=== PATIENT | male | born 1985 | race Caucasian/White ===

== ENCOUNTER 2017-03-30 14:26 | Emergency (ER) | payer OTHER ==
[2017-03-30 14:30] VITALS: BP 131/80; PULSE 79; RESP 18; TEMP 98.4
[2017-03-30] MEDS ORDERED: IBUPROFEN 800 MG TAB PO STA (14:52)
--- NOTE | 2017-03-30 14:54 | ED ---
Back Pain HPI - General Chief Complaint: Back Pain/Injury Stated Complaint: back pain Time Seen by Provider: 03/30/17 14:33 Source: patient, RN notes reviewed Limitations: no limitations - History of Present Illness Initial Comments: Patient is a 31-year-old male presents to the emergency room for evaluation of left-sided low back pain. Patient states he was lifting up a heavy object about a month ago and felt a pull in his left lower back. Patient states been having constant pain in his lower back ever since the incident. Patient denies taking any Tylenol or Motrin or any types of pain relievers for symptoms. Patient denies ever following up with his primary care provider. Patient denies saddle anesthesia. Patient denies urinary or fecal incontinence. Patient denies any numbness or tingling going down his legs. Patient denies any fall or direct trauma to his back. - Related Data Previous Rx's Medication Instructions Recorded Ibuprofen [Motrin] 800 mg PO Q6HR PRN #20 tab 03/30/17 Orphenadrine [Norflex] 100 mg PO Q12H PRN #12 tablet.er 03/30/17 Allergies Allergy/AdvReac Type Severity Reaction Status Date / Time No Known Allergies Allergy Verified 03/30/17 14:30 Review of Systems ROS Statement: Those systems with pertinent positive or pertinent negative responses have been documented in the HPI. ROS Other: All systems not noted in ROS Statement are negative. Past Medical History Additional Past Medical History / Comment(s): back pain History of Any Multi-Drug Resistant Organisms: None Reported Past Surgical History: No Surgical Hx Reported Past Psychological History: No Psychological Hx Reported Smoking Status: Current every day smoker Past Alcohol Use History: None Reported Past Drug Use History: None Reported General Exam - General Exam Comments Initial Comments: Sitting in exam room, no acute distress. Limitations: no limitations General appearance: alert, in no apparent distress Head exam: Present: atraumatic, normocephalic, normal inspection Eye exam: Present: normal appearance ENT exam: Present: normal exam Neck exam: Present: normal inspection Respiratory exam: Absent: respiratory distress Extremities exam: Present: normal inspection Back exam: Present: normal inspection, full ROM, paraspinal tenderness (Left- sided lumbosacral paraspinal tenderness on palpation) Neurological exam: Present: alert, oriented X3, CN II-XII intact Psychiatric exam: Present: normal affect, normal mood Skin exam: Present: warm, dry, intact, normal color. Absent: rash Course Vital Signs 03/30/17 14:28 Temperature 98.4 F Pulse Rate 79 Respiratory 18 Rate Blood Pressure 131/80 O2 Sat by Pulse 97 Oximetry Medical Decision Making - Medical Decision Making Patient is a 31-year-old male presents emergency room for evaluation of low back pain 1 month. Lumbar spine x-ray: Very mild anterior wedge deformity of L1 of indetermine age. Patient has no tenderness on palpation. Patient states he might have fallen a few months ago but cannot recall any specific injury. Patient has no neuro deficits. Advised patient to follow-up with youth care specialist for further evaluation. Patient states he understands everything that was discussed with him. Return parameters discussed. Case discussed with Dr. Abdi. - Radiology Data Radiology results: report reviewed, image reviewed Disposition Clinical Impression: Low back pain Disposition: HOME SELF-CARE Condition: Good Instructions: Acute Low Back Pain (ED) Additional Instructions: Take Tylenol or Motrin as needed for pain. Warm moist heat. Please follow-up with youth care specialist for reevaluation in 24-48 hours. If any new symptom arises or symptoms worsen, return to ER as soon as possible. Prescriptions: Ibuprofen [Motrin] 800 mg PO Q6HR PRN #20 tab PRN Reason: Pain Orphenadrine [Norflex] 100 mg PO Q12H PRN #12 tablet.er PRN Reason: Pain Referrals: Mendoza Burgos MD [STAFF PHYSICIAN] - 1-2 days Time of Disposition: 15:16
--- NOTE | 2017-03-30 15:08 | XR ---
EXAM TYPE: LUMBAR SPINE X RAY SERIES COMPARISON: NONE HISTORY: Lower back pain TECHNIQUE: 4 views are submitted. FINDINGS: Alignment is anatomic. The pedicles are intact. The transverse processes are intact. There is no s pondylolysis or spondylolisthesis. Mild anterior wedge deformity of L1 of indeterminate age. Spina b ifida occulta lumbosacral junction. IMPRESSION: 1. Very mild anterior wedge deformity L1 of indeterminate age. Correlate clinically..
== END 2017-03-30 15:26 | disposition home or self-care (01) ==
LOC: EC 14:26
DX: M54.5 Low back pain (principal); F17.200 Nicotine dependence, unspecified, uncomplicated
CPT/HCPCS: 72110; 99283

== ENCOUNTER 2022-05-06 16:00 | Emergency (ER) | payer OTHER ==
[2022-05-06 16:49] VITALS: RESP 20; TEMP 98.6
[2022-05-06] MEDS ORDERED: ACETAMINOPHEN TAB 500 MG TAB PO STA (18:10)
--- NOTE | 2022-05-06 18:44 | ED ---
General Adult HPI - General Source: police, RN notes reviewed, old records reviewed Mode of arrival: ambulatory Limitations: no limitations <Jacoby Morfin - Last Filed: 05/06/22 18:41> <Roby Garcia - Last Filed: 05/07/22 18:31> - General Chief complaint: Psychiatric Symptoms Stated complaint: Law Enforcement Petition, Mental Health Time Seen by Provider: 05/06/22 17:57 - History of Present Illness Initial comments: Patient is a 36-year-old male with past medical history remarkable for methamphetamine use presents emergency department after being dictation by police. Patient has called police the last 2 nights. Petition states "jerardo is paranoid and delusional. Plans believe that numerous people were sitting in his vehicle. Office is also spoke with Jerardo that previously and at that time he believed 100s of officers were following him. He also mentioned his belongings were in a random citizens heart as they were riding a bicycle by him." Patient does admit to using methamphetamine 2 days ago. Since that time he states he has been hearing voices. Nondiscernible statements made by the voices. Also appears somewhat delusional. No history of mental illness per patient. Denies any other drug use. Denies alcohol use. Denies suicidal or homicidal ideations, attempts, plans. Presents for psychiatric evaluation at this time. Currently has no other acute complaints. He has chronic back discomfort and is requesting and Tylenol at this time.Patient presents in custody of police. (Jacoby Morfin) - Related Data Previous Rx's Medication Instructions Recorded Ibuprofen [Motrin] 800 mg PO Q6HR PRN #20 tab 03/30/17 Orphenadrine [Norflex] 100 mg PO Q12H PRN #12 tablet.er 03/30/17 Allergies Allergy/AdvReac Type Severity Reaction Status Date / Time No Known Allergies Allergy Verified 05/06/22 16:48 Review of Systems ROS Other: All systems not noted in ROS Statement are negative. <Jacoby Morfin - Last Filed: 05/06/22 18:41> ROS Other: All systems not noted in ROS Statement are negative. <Roby Garcia - Last Filed: 05/07/22 18:31> ROS Statement: Those systems with pertinent positive or pertinent negative responses have been documented in the HPI. Review of Systems: CONST: Denies fever EYES: Denies blurry vision ENT: Denies nasal congestion C/V: Denies Chest pain RESP: Denies shortness of breath GI: Denies abdominal pain : Denies dysuria SKIN: Denies rash. MSK: Denies joint pain. NEURO: Denies headache PSYCH: Denies suicidal and homicidal ideations/plans/attempts. Denies visual hallucinations. He endorses hearing voices. (Jacoby Morfin) Past Medical History Additional Past Medical History / Comment(s): back pain History of Any Multi-Drug Resistant Organisms: None Reported Past Surgical History: No Surgical Hx Reported Past Psychological History: No Psychological Hx Reported Smoking Status: Current every day smoker Past Alcohol Use History: None Reported Past Drug Use History: None Reported <Jacoby Morfin - Last Filed: 05/06/22 18:41> General Exam Limitations: no limitations <Jacoby Morfin - Last Filed: 05/06/22 18:41> - General Exam Comments Initial Comments: General: Appears in no acute distress. HEAD: Normal with no signs of head trauma. EYES: PERRLA, EOMI, conjunctiva normal, no discharge. Pupils are 3 mm and equal bilaterally. ENT: Hearing grossly intact, normal oropharynx. RESPIRATORY: Clear breath sounds bilaterally. No wheezes, rales, or rhonchi. C/V: Regular rate and rhythm. S1 and S2 auscultated, no edema, peripheral pulses 2+ and intact throughout ABD: Abd is soft, nontender, nondistended EXT: Normal range of motion, no obvious deformity SKIN: No rashes or lesions observed on exposed skin. NEURO: Alert and oriented 4. Cooperative. No focal deficits. (Jacoby Morfin) Course Vital Signs 05/06/22 05/06/22 05/07/22 16:44 20:06 05:25 Temperature 98.6 F Pulse Rate 88 80 70 Respiratory 20 Rate Blood Pressure 148/102 131/80 116/75 O2 Sat by Pulse 97 97 Oximetry Medical Decision Making <Jacoby Morfin - Last Filed: 05/06/22 18:41> <Roby Garcia - Last Filed: 05/07/22 18:31> - Medical Decision Making Based on the patient's presentation and physical exam, do believe that he requires psychiatric evaluation. I do not believe that further laboratory studies are required at this time. Patient was placed in green scrubs. BAT is 0.00. UDS is pending. Patient is otherwise cleared for evaluation by psychiatry. Patient is medically cleared. Disposition is pending psychiatric evaluation. EPS was notified. (Jacoby Morfin) 36 male was seen and evaluated by psychiatry here in the ER. Patient will be discharged home as he is currently clear intoxication (Roby Garcia) - Lab Data Lab Results 05/06/22 Range/Units 18:29 Urine Opiates Screen Not Detected (NotDetected) Ur Oxycodone Screen Not Detected (NotDetected) Urine Methadone Screen Not Detected (NotDetected) Ur Propoxyphene Screen Not Detected (NotDetected) Ur Barbiturates Screen Not Detected (NotDetected) U Tricyclic Antidepress Not Detected (NotDetected) Ur Phencyclidine Scrn Not Detected (NotDetected) Ur Amphetamines Screen Detected H (NotDetected) U Methamphetamines Scrn Detected H (NotDetected) U Benzodiazepines Scrn Not Detected (NotDetected) Urine Cocaine Screen Detected H (NotDetected) U Marijuana (THC) Screen Not Detected (NotDetected) Disposition <Jacoby Morfin - Last Filed: 05/06/22 18:41> Is patient prescribed a controlled substance at d/c from ED?: No <Roby Garcia - Last Filed: 05/07/22 18:31> Clinical Impression: Encounter for psychiatric assessment, Delusions, Methamphetamine use, Auditory hallucination Disposition: HOME SELF-CARE Condition: Good Instructions (If sedation given, give patient instructions): Brief Psychotic Disorder (ED) Referrals: Tyron Meek MD [Primary Care Provider] - 1-2 days
[2022-05-06 19:30] LABS: Cocaine Screen,Urine Detected (NotDetected); Phencyclidine Screen,Urine Not Detected (NotDetected); Urn Cannabinoid Scrn Not Detected (NotDetected)
[2022-05-06 19:31] LABS: Amphetamine Screen,Urine Detected (NotDetected); Barbiturate Screen,Urine Not Detected (NotDetected); Benzodiazepines Screen,Urine Not Detected (NotDetected); Methadone Screen, Urine Not Detected (NotDetected); Opiate Screen,Urine Not Detected (NotDetected); Oxycodone Screen, Urine Not Detected (NotDetected); Tricyclic Antidepressant,Urine Not Detected (NotDetected)
[2022-05-07 05:30] VITALS: BP 116/75; PULSE 70
== END 2022-05-07 06:31 | disposition home or self-care (01) ==
LOC: EC 16:00
DX: Z04.6 Encounter for general psychiatric examination, requested by authority (principal); F15.90 Other stimulant use, unspecified, uncomplicated; R44.0 Auditory hallucinations
CPT/HCPCS: 80306; 82075

== ENCOUNTER 2024-04-05 19:28 | Emergency (ER) | payer OTHER ==
[2024-04-05 19:48] VITALS: BP 151/88; PULSE 75; RESP 18; TEMP 98.2
--- NOTE | 2024-04-05 22:39 | ED ---
Psych HPI - General Chief Complaint: Psychiatric Symptoms Stated Complaint: Mental Health Time Seen by Provider: 04/05/24 21:55 Source: patient Mode of arrival: ambulatory - History of Present Illness Initial Comments: 38-year-old male presenting for psychiatric evaluation. The patient states that he has been hearing voices. When asked what the voices are saying he says "a little bit of everything". He states that the voices are not telling him to harm himself or other people. He denies any suicidal or homicidal ideation. He denies any visual hallucinations. States "I feel like someone bugged me". No physical complaints today. The patient is currently homeless. - Related Data Home Medications Medication Instructions Recorded Confirmed Albuterol Sulfate [Albuterol 1 - 2 puff INHALATION RT-QID PRN 01/02/23 01/02/23 Sulfate Hfa] Buprenorphine HCl/Naloxone HCl 1 film SL DAILY 01/02/23 01/02/23 [Suboxone 8 mg-2 mg Sl Film] Ergocalciferol [Vitamin D2 (1250 1,250 mcg PO QMONTHLY 01/02/23 01/02/23 Mcg = [id number] Iu)] LORazepam [Ativan] 0.5 mg PO DAILY PRN 01/02/23 01/02/23 Venlafaxine HCl ER [Effexor Xr] 75 mg PO DAILY 01/02/23 01/02/23 Allergies Allergy/AdvReac Type Severity Reaction Status Date / Time No Known Allergies Allergy Verified 04/05/24 19:33 Review of Systems ROS Statement: Those systems with pertinent positive or pertinent negative responses have been documented in the HPI. ROS Other: All systems not noted in ROS Statement are negative. Past Medical History Additional Past Medical History / Comment(s): back pain History of Any Multi-Drug Resistant Organisms: None Reported Past Surgical History: No Surgical Hx Reported Past Psychological History: No Psychological Hx Reported Smoking Status: Current every day smoker Past Alcohol Use History: None Reported Past Drug Use History: None Reported General Exam Limitations: no limitations General appearance: alert, in no apparent distress Head exam: Present: atraumatic, normocephalic Eye exam: Present: normal appearance, EOMI Neck exam: Present: normal inspection Respiratory exam: Absent: respiratory distress Cardiovascular Exam: Present: regular rate Neurological exam: Present: alert, oriented X3 Psychiatric exam: Absent: homicidal ideation, suicidal ideation Skin exam: Present: normal color Course Vital Signs 04/05/24 19:31 Temperature 98.2 F Pulse Rate 75 Respiratory 18 Rate Blood Pressure 151/88 O2 Sat by Pulse 99 Oximetry Medical Decision Making - Medical Decision Making Was pt. sent in by a medical professional or institution (, [place], SENIOR MORTGAGE UNDERWRITER, urgent care, hospital, or retirement...) When possible be specific @ -No Did you speak to anyone other than the patient for history (EMS, parent, family, police, friend...)? What history was obtained from this source @ -No Did you review nursing and triage notes (agree or disagree)? Why? @ -I reviewed and agree with nursing and triage notes Were old charts reviewed (outside hosp., previous admission, EMS record, old EKG, old radiological studies, urgent care reports/EKG's, retirement records)? Report findings @ -No old charts were reviewed Differential Diagnosis (chest pain, altered mental status, abdominal pain women, abdominal pain men, vaginal bleeding, weakness, fever, dyspnea, syncope, headache, dizziness, GI bleed, back pain, seizure, CVA, palpatations, mental health, musculoskeletal)? @ -Differential Mental Health Depression, anxiety, bipolar, psychosis, schizophrenia, borderline personality, situational depression, adjustment disorder, behavioral disorder, brain tumor, malingering, substance abuse, encephalopathy, medication reaction, dementia, hypothyroidism, degenerative neurologic disorder, lupus.... This is not meant to be all-inclusive list EKG interpreted by me (3pts min.). @ -As above X-rays interpreted by me (1pt min.). @ -None done CT interpreted by me (1pt min.). @ -None done U/S interpreted by me (1pt. min.). @ -None done What testing was considered but not performed or refused? (CT, X-rays, U/S, labs)? Why? @ -Urine drug screen was ordered, patient left AMA What meds were considered but not given or refused? Why? @ -None Did you discuss the management of the patient with other professionals (professionals i.e. [employer] [facility], SENIOR MORTGAGE UNDERWRITER, lab, RT, psych nurse, psychologist social, maternal fetal physician, teacher, promotion officer, mattress spring encaser)? Give summary @ -No Was smoking cessation discussed for >3mins.? @ -No Was critical care preformed (if so, how long)? @ -No Were there social determinants of health that impacted care today? How? (Homelessness, low income, unemployed, alcoholism, drug addiction, transportation, low edu. Level, literacy, decrease access to med. care, fci, rehab)? @ -No Was there de-escalation of care discussed even if they declined (Discuss DNR or withdrawal of care, Hospice)? DNR status @ -No What co-morbidities impacted this encounter? (DM, HTN, Smoking, COPD, CAD, Cancer, CVA, ARF, Chemo, Hep., AIDS, mental health diagnosis, sleep apnea, morbid obesity)? @ -None Was patient admitted / discharged? Hospital course, mention meds given and route, prescriptions, significant lab abnormalities, going to OR and other pertinent info. @ -38-year-old male requesting a psychiatric evaluation. States that he was hearing voices. No suicidal or homicidal ideation. Patient later left his room without letting staff know. He was found in the waiting room and told them that he had called a ride and did not wish to receive an evaluation. The patient is not a danger to himself or others, he signed out AGAINST MEDICAL ADVICE. Undiagnosed new problem with uncertain prognosis? @ -No Drug Therapy requiring intensive monitoring for toxicity (Heparin, Nitro, Insulin, Cardizem)? @ -No Were any procedures done? @ -No Diagnosis/symptom? @ -Adjustment reaction of abdominal life Acute, or Chronic, or Acute on Chronic? @ -Acute Uncomplicated (without systemic symptoms) or Complicated (systemic symptoms)? @ -Uomplicated Side effects of treatment? @ -No Exacerbation, Progression, or Severe Exacerbation? @ -No Poses a threat to life or bodily function? How? (Chest pain, [place], [place], pneumonia, PE, COPD, DKA, ARF, appy, cholecystitis, CVA, Diverticulitis, Homicidal, Suicidal, threat to staff... and all critical care pts) @ -Low likelihood Disposition Clinical Impression: Adjustment reaction of adult life Disposition: LEFT AGAINST MEDICAL ADVICE Condition: Stable Referrals: None,Stated [Primary Care Provider] - 1-2 days Time of Disposition: 23:31
== END 2024-04-05 23:30 | disposition left against medical advice (07) ==
LOC: EC 19:28
DX: F43.20 Adjustment disorder, unspecified (principal); F17.200 Nicotine dependence, unspecified, uncomplicated; Z59.00 Homelessness unspecified; Z53.29 Procedure and treatment not carried out because of patient's decision for other reasons
CPT/HCPCS: 82075; 99284

== ENCOUNTER 2024-04-14 02:45 | Emergency (ER) | payer OTHER ==
--- NOTE | 2024-04-14 03:03 | ED ---
Psych HPI - General Stated Complaint: Mental Health Time Seen by Provider: 04/14/24 03:02 - History of Present Illness Initial Comments: Vadim is a 38-year-old gentleman well-known to this ER for visits related to methamphetamine abuse. Today the patient was found running down the street screaming the place approached him and he started yelling that he wanted to so they brought him to the ER for psychiatric evaluation. Patient does admit to regular use of crystal meth including earlier in the night. - Related Data Home Medications Medication Instructions Recorded Confirmed Albuterol Sulfate [Albuterol 1 - 2 puff INHALATION RT-QID PRN 01/02/23 01/02/23 Sulfate Hfa] Buprenorphine HCl/Naloxone HCl 1 film SL DAILY 01/02/23 01/02/23 [Suboxone 8 mg-2 mg Sl Film] Ergocalciferol [Vitamin D2 (1250 1,250 mcg PO QMONTHLY 01/02/23 01/02/23 Mcg = 57132 Iu)] LORazepam [Ativan] 0.5 mg PO DAILY PRN 01/02/23 01/02/23 Venlafaxine HCl ER [Effexor Xr] 75 mg PO DAILY 01/02/23 01/02/23 Allergies Allergy/AdvReac Type Severity Reaction Status Date / Time No Known Allergies Allergy Verified 04/05/24 19:33 Review of Systems ROS Statement: Those systems with pertinent positive or pertinent negative responses have been documented in the HPI. ROS Other: All systems not noted in ROS Statement are negative. Past Medical History Additional Past Medical History / Comment(s): back pain History of Any Multi-Drug Resistant Organisms: None Reported Past Surgical History: No Surgical Hx Reported Past Psychological History: No Psychological Hx Reported Smoking Status: Current every day smoker Past Alcohol Use History: None Reported Past Drug Use History: None Reported General Exam - General Exam Comments Initial Comments: Physical Exam GENERAL: Patient is well-developed and well-nourished. Patient is nontoxic and well-hydrated and is in no distress. HENT: Normocephalic, Atraumatic. EYES: PERRL, EOMI PULMONARY: Unlabored respirations. CARDIOVASCULAR: RRR Warm and well perfused extremities ABDOMEN: Non-distended SKIN: No rashes or bruising : Deferred NEUROLOGIC: Alert and oriented Normal speech Normal gait MUSCULOSKELETAL: Moving all extremities with no apparent injury PSYCHIATRIC: Denies suicidal or homicidal ideation Course Vital Signs 04/14/24 02:57 Temperature 97.9 F Pulse Rate 88 Respiratory 16 Rate Blood Pressure 131/51 O2 Sat by Pulse 96 Oximetry Medical Decision Making - Medical Decision Making Was pt. sent in by a medical professional or institution (, [place], DRAW PRESS OPERATOR, urgent care, hospital, or usp...) When possible be specific @ -No Did you speak to anyone other than the patient for history (EMS, parent, family, police, friend...)? What history was obtained from this source @ -Law enforcement, EMS Did you review nursing and triage notes (agree or disagree)? Why? @ -I reviewed and agree with nursing and triage notes Were old charts reviewed (outside hosp., previous admission, EMS record, old EKG, old radiological studies, urgent care reports/EKG's, usp records)? Report findings @ -Previous ER visits and labs were reviewed Differential Diagnosis (chest pain, altered mental status, abdominal pain women, abdominal pain men, vaginal bleeding, weakness, fever, dyspnea, syncope, headache, dizziness, GI bleed, back pain, seizure, CVA, palpatations, mental health)? @ -Differential Mental Health Depression, anxiety, bipolar, psychosis, schizophrenia, borderline personality, situational depression, adjustment disorder, behavioral disorder, brain tumor, malingering, substance abuse, encephalopathy, medication reaction, dementia, hypothyroidism, degenerative neurologic disorder, lupus.... This is not meant to be all-inclusive list EKG interpreted by me (3pts min.). @ -As above X-rays interpreted by me (1pt min.). @ -None done CT interpreted by me (1pt min.). @ -None done U/S interpreted by me (1pt. min.). @ -None done What testing was considered but not performed or refused? (CT, X-rays, U/S, labs)? Why? @ -None What meds were considered but not given or refused? Why? @ -None Did you discuss the management of the patient with other professionals (professionals i.e. [place] [facility], DRAW PRESS OPERATOR, lab, RT, psych nurse, high school social studies tutor, educational manager, teacher, postal delivery officer, nurse case management)? Give summary @ -No Was smoking cessation discussed for >3mins.? @ -No Was critical care preformed (if so, how long)? @ -No Were there social determinants of health that impacted care today? How? (Homelessness, low income, unemployed, alcoholism, drug addiction, t ransportation, low edu. Level, literacy, decrease access to med. care, longterm, rehab)? @ -Drug addiction Was there de-escalation of care discussed even if they declined (Discuss DNR or withdrawal of care, Hospice)? DNR status @ -No What co-morbidities impacted this encounter? (DM, HTN, Smoking, COPD, CAD, Cancer, CVA, ARF, Chemo, Hep., AIDS, mental health diagnosis, sleep apnea, morbid obesity)? @ -None Was patient admitted / discharged? Hospital course, mention meds given and route, prescriptions, significant lab abnormalities, going to OR and other pertinent info. @ -Discharged The patient was seen and evaluated history was obtained from patient and law enforcement. Patient admitted to crystal methamphetamine use he denied any suicidal or homicidal ideation. Patient is awake alert oriented and appropriate. Patient was evaluated by the EPS nurse who agrees patient is awake alert oriented and able to safety plan. Patient will be discharged home Undiagnosed new problem with uncertain prognosis? @ -No Drug Therapy requiring intensive monitoring for toxicity (Heparin, Nitro, Ins ulin, Cardizem)? @ -No Were any procedures done? @ -No Diagnosis/symptom? @ -Methamphetamine abuse Acute, or Chronic, or Acute on Chronic? @ -Chronic Uncomplicated (without systemic symptoms) or Complicated (systemic symptoms)? @ -Complicated Side effects of treatment? @ -No Exacerbation, Progression, or Severe Exacerbation? @ -No Poses a threat to life or bodily function? How? (Chest pain, [place], AL, pneumonia, PE, COPD, DKA, ARF, appy, cholecystitis, CVA, Diverticulitis, Homicidal, Suicid al, threat to staff... and all critical care pts) @ -potentially - Lab Data Result diagrams: 04/14/24 03:17 04/14/24 03:17 Lab Results 04/14/24 04/14/24 Range/Units 03:17 03:17 WBC 9.2 (3.8-10.6) k/uL RBC 4.76 (4.30-5.90) m/uL Hgb 14.1 (13.0-17.5) gm/dL Hct 43.0 (39.0-53.0) % MCV 90.4 (80.0-100.0) fL MCH 29.5 (25.0-35.0) pg MCHC 32.7 (31.0-37.0) g/dL RDW 13.7 (11.5-15.5) % Plt Count 281 (150-450) k/uL MPV 8.4 Neutrophils % 77 % Lymphocytes % 16 % Monocytes % 4 % Eosinophils % 2 % Basophils % 0 % Neutrophils # 7.0 (1.3-7.7) k/uL Lymphocytes # 1.5 (1.0-4.8) k/uL Monocytes # 0.4 (0-1.0) k/uL Eosinophils # 0.2 (0-0.7) k/uL Basophils # 0.0 (0-0.2) k/uL Sodium 135 L (137-145) mmol/L Potassium 4.1 (3.5-5.1) mmol/L Chloride 103 (98-107) mmol/L Carbon Dioxide 26 (22-30) mmol/L Anion Gap 6 mmol/L BUN 14 (9-20) mg/dL Creatinine 0.72 (0.66-1.25) mg/dL Est GFR (CKD-EPI)AfAm >90 (>60 ml/min/1.73 sqM) Est GFR (CKD-EPI)NonAf >90 (>60 ml/min/1.73 sqM) Glucose 99 (74-99) mg/dL Calcium 9.5 (8.4-10.2) mg/dL Total Bilirubin 0.5 (0.2-1.3) mg/dL AST 23 (17-59) U/L ALT 19 (4-49) U/L Alkaline Phosphatase 68 (38-126) U/L Creatine Kinase 101 (55-170) U/L Total Protein 7.1 (6.3-8.2) g/dL Albumin 4.7 (3.5-5.0) g/dL Salicylates <1.0 mg/dL Acetaminophen <10.0 ug/mL Serum Alcohol <10 mg/dL Disposition Clinical Impression: Methamphetamine abuse Disposition: HOME SELF-CARE Condition: Stable Is patient prescribed a controlled substance at d/c from ED?: No Referrals: None,Stated [Primary Care Provider] - 1-2 days
[2024-04-14 03:07] VITALS: TEMP 97.9
[2024-04-14 03:27] LABS: Basophils % (A) 0 %; Eosinophils # (A) 0.2 k/uL (0-0.7); Eosinophils % (A) 2 %; HGB 14.1 gm/dL (13.0-17.5); Lymphocytes # (A) 1.5 k/uL (1.0-4.8); Lymphocytes % (A) 16 %; MCH 29.5 pg (25.0-35.0); MCHC 32.7 g/dL (31.0-37.0); MCV 90.4 fL (80.0-100.0); Mean Platelet Volume 8.4; Monocytes # (A) 0.4 k/uL (0-1.0); Monocytes % (A) 4 %; Neutrophils % (A) 77 %; Platelet Count 281 k/uL (150-450); RBC 4.76 m/uL (4.30-5.90); RDW 13.7 % (11.5-15.5); WBC 9.2 k/uL (3.8-10.6)
[2024-04-14] MEDS: SODIUM CHLORIDE 0.9% 1,000 ML BAG IV STA (03:35)
[2024-04-14 03:39] LABS: ALT 19 U/L (4-49); AST 23 U/L (17-59); Acetaminophen <10.0 ug/mL; African American GFR (CKD) >90 (>60 ml/min/1.73 sqM); Albumin 4.7 g/dL (3.5-5.0); Alcohol <10 mg/dL; Alkaline Phosphatase 68 U/L (38-126); Anion Gap 6 mmol/L; Blood Urea Nitrogen 14 mg/dL (9-20); Calcium 9.5 mg/dL (8.4-10.2); Carbon Dioxide 26 mmol/L (22-30); Chloride 103 mmol/L (98-107); Creatine Kinase 101 U/L (55-170); Glucose 99 mg/dL (74-99); Non-African American GFR(CKD) >90 (>60 ml/min/1.73 sqM); Potassium 4.1 mmol/L (3.5-5.1); Salicylate <1.0 mg/dL; Sodium 135 mmol/L (137-145); Total Bilirubin 0.5 mg/dL (0.2-1.3); Total Protein 7.1 g/dL (6.3-8.2)
[2024-04-14 05:45] VITALS: BP 136/90; PULSE 71; RESP 18
== END 2024-04-14 05:41 | disposition home or self-care (01) ==
LOC: EC 02:45
DX: F15.10 Other stimulant abuse, uncomplicated (principal); F17.200 Nicotine dependence, unspecified, uncomplicated
CPT/HCPCS: 82075; 36415; 80053; 82550; 85025; 80143; 80179; 99285; 96360; G0480; 80320